=== PATIENT | female | born 1975 | race Hispanic/Latino ===

== ENCOUNTER 2024-08-26 09:32 | Day surgery (SDC) | payer OTHER ==
[2024-08-23 13:00] VITALS: BP 133/74; PULSE 56; RESP 16; TEMP 97.3
[2024-08-23 13:05] LABS: BASOPHILS # (AUTO) 0.04 K/uL (0.00-0.20); BASOPHILS % (AUTO) 0.6 % (0.0-5.0); EOSINOPHILS # (AUTO) 0.18 K/uL (0.00-0.70); EOSINOPHILS % (AUTO) 2.7 % (0.0-8.0); HEMATOCRIT 38.7 % (36-48); IMMATURE GRANULOCYTE ABSOLUTE 0.02 K/uL (0-1); MEAN CORPUSCULAR HEMOGLOBIN 31.3 pg (27.0-33.0); MEAN CORPUSCULAR HGB CONC 33.9 g/dL (32.0-36.0); MEAN CORPUSCULAR VOLUME 92.4 fL (79-99); MONOCYTES # (AUTO) 0.4 K/uL (0.1-1.0); MONOCYTES % (AUTO) 5.2 % (3.0-13.0); NEUTROPHILS # (AUTO) 3.2 K/uL (1.8-7.7); NEUTROPHILS % (AUTO) 47.2 % (40.0-77.0); PLATELET COUNT (AUTO) 362 K/uL (130-400); RED BLOOD CELL COUNT(AUTO) 4.19 MIL/uL (4.00-5.50); RED CELL DISTRIBUTION WIDTH 12.7 % (11.0-15.5); WHITE BLOOD COUNT (AUTO) 6.8 K/uL (4.8-10.8)
[2024-08-23 13:12] LABS: CREATININE 0.7 mg/dL (0.5-1.0); POTASSIUM 4.2 mmol/L (3.5-5.1)
[2024-08-23 13:16] LABS: INR 1.04 (0.85-1.15)
[2024-08-23 13:17] LABS: PARTIAL THROMBOPLASTIN TIME 30.8 SEC (26.3-35.5)
[2024-08-26] VITALS (12 sets, daily range): BP systolic 106–134; BP diastolic 61–74; PULSE 56–63; RESP 13–18; TEMP 97.3–98
[~2024-08-26] VITALS: Ht 165.1 cm; Wt 91.4 kg
[2024-08-26] MEDS: BUPIvacaine/PF 0.5% 30ML VIAL ONE
[2024-08-26] MEDS: LIDOCAINE HCL 1% 20 ML VIAL ONE
[~2024-08-26 09:32] MED LIST: PHEN15CA61 PO
[2024-08-26] MEDS: ceFAZolin SODIUM 1 GM VIAL ONE (10:57)
[2024-08-26] MEDS: LACTATED RINGERS 1000ML 1,000 ML IV ONE (10:57)
[2024-08-26] MEDS: ceFAZolin SODIUM 2 GM VIAL ONE (10:58)
[2024-08-26] MEDS ORDERED: proPOFol 10 MG/ML 20ML VIAL IV ONE (11:36)
[2024-08-26] MEDS ORDERED: MIDAZOLAM HCL 1 MG/ML 2ML VIAL ONE (11:36)
[2024-08-26] MEDS ORDERED: FENTanyl CITRate PF 50 MCG/1 ML 2ML VIAL ONE (11:37)
[2024-08-26] MEDS ORDERED: VITAMIN D PO (12:01)
--- NOTE | 2024-08-26 12:21 | OP ---
Operative Note: DATE OF PROCEDURE: 08/26/24 SURGEON: MARE HIGGINS DO HCC CODERS: None ANESTHESIA: Local and MAC ANESTHESIOLOGIST/SIDE SHOW ENTERTAINER: Dr. Morris PREOPERATIVE DIAGNOSIS: Soft tissue mass left upper quadrant abdominal wall POSTOPERATIVE DIAGNOSIS: Soft tissue mass left upper quadrant abdominal wall SYNOPSIS: None PROCEDURE: Excision soft tissue mass abdominal wall ESTIMATED BLOOD LOSS: 10 cc INDICATIONS: This is a 48-year-old female with a small subcutaneous mass that is painful. She has had it for about a year. No growth. She had an ultrasound of the soft tissues in that region which indicated a 2 cm lipoma. I recommended excision as this lesion is painful. I discussed the procedure in detail with the patient. All questions were answered. The patient expressed understanding and agreement with plan. DESCRIPTION OF PROCEDURE: Patient was placed on the operating table in the supine position. After adequate sedation the patient was intubated by suzi luu. Perioperative antibiotics were given. The patient's abdomen was prepped and draped in the usual sterile fashion. A time-out was performed. Local anesthetic was infiltrated into the skin and soft tissue of the proposed incision. A 3 cm transverse skin incision was made at the previously marked area. Dissection was carried down to the level of subcutaneous fat. A 2 cm p alpable lipomatous mass was identified and excised from the surrounding subcutaneous fat. It was handed off for routine pathology. Hemostasis was achieved using electrocautery. The wound was copiously irrigated with sterile saline. The deep tissues were approximated using interrupted sutures of 3-0 Vicryl. The skin was approximated using 4-0 Monocryl in a subcuticular fashion. The the wound was dressed with Dermabond. The patient tolerated the procedure well. All instrument, needle, and sponge counts were correct at the end of the procedure. The patient was aroused from sedation, extubated, and transferred to the postanesthesia care unit in good condition. MARE HIGGINS DO Aug 26, 2024 12:21
--- NOTE | 2024-08-26 13:30 | NUR ---
Full and complete discharge instructions given to Patient and Family both verbally and in writing. Explained Surgical procedure precautions and follow up. Voided x 2 in bathroom. Incision site clean and dry. Denies c/o pain or issue. All questions answered. PIV removed with catheter tip intact. Home with Family W/C to POV.
== END 2024-08-26 13:33 | disposition home or self-care (01) ==
LOC: DAH 09:32
PROVIDERS: ATTEND Student in an Organized Health Care Education/Training Program
DX: R22.2 Localized swelling, mass and lump, trunk (principal); D17.1 Benign lipomatous neoplasm of skin and subcutaneous tissue of trunk; Z90.710 Acquired absence of both cervix and uterus; Z91.048 Other nonmedicinal substance allergy status; Z79.01 Long term (current) use of anticoagulants; Z79.899 Other long term (current) drug therapy
CPT/HCPCS: 80048; 85025; 85610; 85730; 86850 ×2; 86900 ×2; 86901 ×2; 36415 ×2; 22902; 88304; A6260; A4663; J7120; J3010; J2250; J2704; J0665; J0690; A4930 ×3; A4215; A4222; A4221; A4216; A4223 ×2; A4600; J3490